=== PATIENT | male | born 1975 | race Caucasian/White ===

== ENCOUNTER 2021-05-03 12:27 | Emergency (ER) | payer OTHER ==
[~2021-05-03 12:27] MED LIST: BACTRIM DS TAB1 EACH PO
[2021-05-03] MEDS ORDERED: CYCLOBENZAPRINE10 MG PO (15:32)
[2021-05-03] MEDS ORDERED: MEDROL 4MG DOSEP4 MG PO (15:32)
== END 2021-05-03 15:50 | disposition home or self-care (01) ==
LOC: FER 12:27
DX: S39.012A Strain of muscle, fascia and tendon of lower back, initial encounter (principal); X58.XXXA Exposure to other specified factors, initial encounter; Y93.72 Activity, wrestling
CPT/HCPCS: 72131